=== PATIENT | female | born 1980 | race Caucasian/White ===

== ENCOUNTER 2018-10-11 10:41 | Outpatient (CLI) | payer MEDICAID | END 2018-10-11 11:32 | disposition home or self-care (01) | LOC: OBT 10:41 → L-D 10:41 → OBT 11:32 | DX: O36.8130 Decreased fetal movements, third trimester, not applicable or unspecified (principal); O09.512 Supervision of elderly primigravida, second trimester; Z3A.23 23 weeks gestation of pregnancy | CPT/HCPCS: 76815 ==

== ENCOUNTER 2018-12-12 10:28 | Outpatient (CLI) | payer MEDICAID ==
[2018-12-12 12:04] LABS: ADD MAN DIFF? NO
[2018-12-12 12:10] LABS: BASOPHILS % 0.4 % (0.0-2.0); EOSINOPHILS # 0.1 10^3/ul (0.0-0.5); EOSINOPHILS % 1.4 % (0.0-7.0); HEMATOCRIT 38.8 % (37.0-47.0); HEMOGLOBIN 13.1 g/dl (12.0-16.0); LYMPHOCYTES # 2.1 10^3/ul (0.8-2.9); LYMPHOCYTES % 26.1 % (15.0-51.0); MEAN CORPUSCULAR HEMOGLOBIN 28.9 pg (29.0-33.0); MEAN CORPUSCULAR HGB CONC 33.8 g/dl (32.0-37.0); MEAN CORPUSCULAR VOLUME 85.5 fl (82.0-101.0); MEAN PLATELET VOLUME 10.2 fl (7.4-10.4); MONOCYTE # 0.5 10^3/ul (0.3-0.9); MONOCYTES % 5.9 % (0.0-11.0); NEUTROPHIL # 5.2 10^3/ul (1.6-7.5); NEUTROPHILS % 65.7 % (39.0-77.0); PLATELET COUNT 235 10^3/UL (140-415); RED BLOOD COUNT 4.54 10^6/ul (4.20-5.40)
[2018-12-12 12:10] LABS: WHITE BLOOD COUNT 7.9 10^3/ul (4.8-10.8)
[2018-12-12 12:22] LABS: ADD UMIC NO; UR ASCORBIC ACID NEGATIVE (NEGATIVE); UR BILIRUBIN (Dip) NEGATIVE (NEGATIVE); UR BLOOD (Dip) NEGATIVE (NEGATIVE); UR CLARITY CLEAR (CLEAR); UR COLOR YELLOW (YELLOW); UR GLUCOSE (Dip) NEGATIVE (NEGATIVE); UR KETONES (Dip) NEGATIVE (NEGATIVE); UR LEUKOCYTE ESTERASE (Dip) NEGATIVE Leu/ul (NEGATIVE); UR NITRITE (Dip) NEGATIVE (NEGATIVE); UR TOTAL PROTEIN (Dip) NEGATIVE (NEGATIVE); UR UROBILINOGEN (Dip) NEGATIVE (NEGATIVE)
[2018-12-12 12:27] LABS: INR 0.84; PROTIME 11.6 Sec (11.9-14.9); PT RATIO 0.9
[2018-12-12 12:28] LABS: URIC ACID 3.2 mg/dl (3.1-7.9)
[2018-12-12 12:28] LABS: ALBUMIN/GLOBULIN RATIO 1.09; ANION GAP 11 (5-13); BILIRUBIN,TOTAL 0.3 mg/dl (0.2-1.3); Estimated GFR > 60 mL/min (>60); PARTIAL THROMBOPLASTIN TIME 26.5 Sec (23.0-35.0)
[2018-12-12 12:32] LABS: ALANINE AMINOTRANSFERASE 25 IU/L (13-69); ALBUMIN 3.4 g/dl (3.3-4.9); ALKALINE PHOSPHATASE 115 IU/L (42-121); ASPARTATE AMINO TRANSFERASE 24 IU/L (15-46); BILIRUBIN,INDIRECT 0.3 mg/dl (0-1.1); BLOOD UREA NITROGEN 8 mg/dl (7-20); CALCIUM 8.5 mg/dl (8.4-10.2); CARBON DIOXIDE 21 mmol/L (21-31); CHLORIDE 109 mmol/L (97-110); CREATININE 0.51 mg/dl (0.44-1.00); GLUCOSE 87 mg/dl (70-220); POTASSIUM 4.5 mmol/L (3.5-5.1); SODIUM 141 mmol/L (135-144); TOTAL PROTEIN 6.5 g/dl (6.1-8.1)
[2018-12-13 18:19] LABS: COLLECTION PERIOD 24 hrs
[2018-12-13 19:57] LABS: COLLECTION PERIOD 24 hrs; CREATININE CLEARANCE 224.7 mls/min (84.0-162.0); CREATININE,URINE RANDOM 35.11 mg/dl (20-320); SCRET 0.51 mg/dl (0.44-1.00); VOLUME 4700 ml/24hrs; VOLUME 4700 mls
[2018-12-13 19:58] LABS: 24HR URINE TOTAL PROTEIN > 600.0 mg/24hrs (42.0-225.0)
== END 2018-12-12 12:51 | disposition home or self-care (01) ==
LOC: OBT 10:28 → L-D 10:28 → OBT 12:51
DX: O36.8130 Decreased fetal movements, third trimester, not applicable or unspecified (principal); Z3A.32 32 weeks gestation of pregnancy
CPT/HCPCS: 76818; 80053; 81003; 82575; 84156; 84560; 85025; 85610; 85730

== ENCOUNTER 2018-12-19 23:55 | Inpatient (IN) | payer MEDICAID ==
[2018-12-20 03:55] LABS: ADD MAN DIFF? NO
[2018-12-20 04:00] LABS: WHITE BLOOD COUNT 7.3 10^3/ul (4.8-10.8)
[2018-12-20 04:00] LABS: BASOPHILS % 0.6 % (0.0-2.0); EOSINOPHILS # 0.2 10^3/ul (0.0-0.5); EOSINOPHILS % 2.5 % (0.0-7.0); HEMOGLOBIN 12.8 g/dl (12.0-16.0); LYMPHOCYTES # 2.1 10^3/ul (0.8-2.9); LYMPHOCYTES % 29.2 % (15.0-51.0); MEAN CORPUSCULAR HEMOGLOBIN 29.1 pg (29.0-33.0); MEAN CORPUSCULAR HGB CONC 34.6 g/dl (32.0-37.0); MEAN CORPUSCULAR VOLUME 84.1 fl (82.0-101.0); MEAN PLATELET VOLUME 10.6 fl (7.4-10.4); MONOCYTE # 0.5 10^3/ul (0.3-0.9); MONOCYTES % 7.4 % (0.0-11.0); NEUTROPHIL # 4.4 10^3/ul (1.6-7.5); NEUTROPHILS % 59.9 % (39.0-77.0); PLATELET COUNT 231 10^3/UL (140-415); RED CELL DISTRIBUTION WIDTH 12.9 % (11.5-14.5)
[2018-12-20] MEDS: LACTATED RINGER'S 1,000 ML IV ×3 (04:00→18:46)
[2018-12-20] MEDS: BETAMET NA PHOS/AC(6 MG/ML) 2 ML INJ SYG IM (04:02)
[2018-12-20 04:04] LABS: ADD UMIC NO; UR ASCORBIC ACID NEGATIVE (NEGATIVE); UR BILIRUBIN (Dip) NEGATIVE (NEGATIVE); UR BLOOD (Dip) NEGATIVE (NEGATIVE); UR CLARITY CLEAR (CLEAR); UR COLOR STRAW (YELLOW); UR GLUCOSE (Dip) NEGATIVE (NEGATIVE); UR KETONES (Dip) NEGATIVE (NEGATIVE); UR LEUKOCYTE ESTERASE (Dip) NEGATIVE Leu/ul (NEGATIVE); UR NITRITE (Dip) NEGATIVE (NEGATIVE); UR SPECIFIC GRAVITY (Dip) 1.002 (1.003-1.030); UR TOTAL PROTEIN (Dip) NEGATIVE (NEGATIVE); UR UROBILINOGEN (Dip) NEGATIVE (NEGATIVE)
[2018-12-20 04:16] LABS: INR 0.87; PROTIME 11.9 Sec (11.9-14.9); PT RATIO 0.9
[2018-12-20 04:17] LABS: PARTIAL THROMBOPLASTIN TIME 26.3 Sec (23.0-35.0)
[2018-12-20 04:21] LABS: ALANINE AMINOTRANSFERASE 27 IU/L (13-69); ALBUMIN 3.2 g/dl (3.3-4.9); ALBUMIN/GLOBULIN RATIO 1.06; ALKALINE PHOSPHATASE 137 IU/L (42-121); ANION GAP 9 (5-13); ASPARTATE AMINO TRANSFERASE 23 IU/L (15-46); BILIRUBIN,INDIRECT 0.2 mg/dl (0-1.1); BILIRUBIN,TOTAL 0.2 mg/dl (0.2-1.3); BLOOD UREA NITROGEN 13 mg/dl (7-20); CALCIUM 8.7 mg/dl (8.4-10.2); CARBON DIOXIDE 21 mmol/L (21-31); CHLORIDE 108 mmol/L (97-110); CREATININE 0.45 mg/dl (0.44-1.00); Estimated GFR > 60 mL/min (>60); GLUCOSE 114 mg/dl (70-220); POTASSIUM 3.7 mmol/L (3.5-5.1); SODIUM 138 mmol/L (135-144); TOTAL PROTEIN 6.2 g/dl (6.1-8.1); URIC ACID 3.6 mg/dl (3.1-7.9)
[2018-12-20] MEDS: INSULIN REGULAR, HUMAN 100 UNIT/1 ML 3ML VIAL SC ×2 (08:25→17:14)
[2018-12-20] MEDS: NPH, HUMAN INSULIN ISOPHANE 3ML VIAL SC ×2 (08:29→21:10)
[2018-12-20] MEDS: MAGNESIUM SULFATE 20 GM/500 ML 500 ML IV ×2 (08:33→19:22)
[2018-12-20] MEDS ORDERED: NACL 0.9% 3 ML SYG IV (09:00)
[2018-12-20] MEDS ORDERED: CA GLUCONATE (GM) 10% 10ML INJ IV (09:00)
[2018-12-20] MEDS: PRENATAL VITAMIN PO (09:41)
[2018-12-20] MEDS: MAGNESIUM SULFATE 4 GM/100 ML 100 ML IV (09:49)
[2018-12-20] MEDS: ACETAMINOPHEN 325 MG TAB PO (19:28)
[2018-12-20 19:36] LABS: MAGNESIUM 4.7 mg/dl (1.7-2.5)
[2018-12-21 01:11] LABS: COLLECTION PERIOD 24 hrs
[2018-12-21 01:29] LABS: MAGNESIUM 5.1 mg/dl (1.7-2.5)
[2018-12-21 02:10] LABS: VOLUME 3145 mls
[2018-12-21 02:11] LABS: 24HR URINE TOTAL PROTEIN 566.1 mg/24hrs (42.0-225.0)
[2018-12-21 02:21] LABS: COLLECTION PERIOD 24 hrs; SCRET 0.45 mg/dl (0.44-1.00); VOLUME 3145 ml/24hrs
[2018-12-21 02:50] LABS: CREATININE CLEARANCE 221.8 mls/min (84.0-162.0)
[2018-12-21] MEDS: BETAMET NA PHOS/AC(6 MG/ML) 2 ML INJ SYG IM (03:56)
[2018-12-21] MEDS: MAGNESIUM SULFATE 20 GM/500 ML 500 ML IV (05:56)
[2018-12-21] MEDS: LACTATED RINGER'S 1,000 ML IV ×2 (07:21→18:42)
[2018-12-21] MEDS: NPH, HUMAN INSULIN ISOPHANE 3ML VIAL SC ×2 (08:08→21:04)
[2018-12-21] MEDS: INSULIN REGULAR, HUMAN 100 UNIT/1 ML 3ML VIAL SC ×2 (08:09→17:44)
[2018-12-21] MEDS: PRENATAL VITAMIN PO (09:14)
[2018-12-21] MEDS: DOCUSATE SODIUM 100 MG CAP PO (23:25)
[2018-12-22] MEDS: INSULIN REGULAR, HUMAN 100 UNIT/1 ML 3ML VIAL SC ×2 (08:55→18:06)
[2018-12-22] MEDS: LACTATED RINGER'S 1,000 ML IV ×2 (08:56→21:55)
[2018-12-22] MEDS: NPH, HUMAN INSULIN ISOPHANE 3ML VIAL SC ×2 (08:56→21:00)
[2018-12-22] MEDS: PRENATAL VITAMIN PO (09:19)
[2018-12-23] MEDS: LACTATED RINGER'S 1,000 ML IV ×3 (04:29→23:58)
[2018-12-23] MEDS: INSULIN REGULAR, HUMAN 100 UNIT/1 ML 3ML VIAL SC ×2 (08:17→18:16)
[2018-12-23] MEDS: NPH, HUMAN INSULIN ISOPHANE 3ML VIAL SC ×2 (08:20→21:08)
[2018-12-23] MEDS: PRENATAL VITAMIN PO (08:21)
[2018-12-23 18:32] LABS: ADD MAN DIFF? NO
[2018-12-23 18:34] LABS: BASOPHILS % 0.5 % (0.0-2.0); EOSINOPHILS # 0.2 10^3/ul (0.0-0.5); EOSINOPHILS % 1.9 % (0.0-7.0); HEMATOCRIT 40.4 % (37.0-47.0); HEMOGLOBIN 13.8 g/dl (12.0-16.0); LYMPHOCYTES # 2.1 10^3/ul (0.8-2.9); LYMPHOCYTES % 26.3 % (15.0-51.0); MEAN CORPUSCULAR HEMOGLOBIN 29.1 pg (29.0-33.0); MEAN CORPUSCULAR HGB CONC 34.2 g/dl (32.0-37.0); MEAN CORPUSCULAR VOLUME 85.1 fl (82.0-101.0); MEAN PLATELET VOLUME 10.8 fl (7.4-10.4); MONOCYTE # 0.6 10^3/ul (0.3-0.9); MONOCYTES % 7.7 % (0.0-11.0); NEUTROPHIL # 4.9 10^3/ul (1.6-7.5); NEUTROPHILS % 63.1 % (39.0-77.0); PLATELET COUNT 237 10^3/UL (140-415); RED BLOOD COUNT 4.75 10^6/ul (4.20-5.40); RED CELL DISTRIBUTION WIDTH 12.9 % (11.5-14.5)
[2018-12-23 18:34] LABS: WHITE BLOOD COUNT 7.8 10^3/ul (4.8-10.8)
[2018-12-23 18:53] LABS: URIC ACID 3.2 mg/dl (3.1-7.9)
[2018-12-23 18:54] LABS: ALANINE AMINOTRANSFERASE 31 IU/L (13-69); ALBUMIN 3.3 g/dl (3.3-4.9); ALKALINE PHOSPHATASE 140 IU/L (42-121); ANION GAP 11 (5-13); ASPARTATE AMINO TRANSFERASE 32 IU/L (15-46); BILIRUBIN,INDIRECT 0.3 mg/dl (0-1.1); BILIRUBIN,TOTAL 0.3 mg/dl (0.2-1.3); BLOOD UREA NITROGEN 13 mg/dl (7-20); CALCIUM 8.6 mg/dl (8.4-10.2); CARBON DIOXIDE 21 mmol/L (21-31); CHLORIDE 107 mmol/L (97-110); CREATININE 0.46 mg/dl (0.44-1.00); Estimated GFR > 60 mL/min (>60); GLUCOSE 69 mg/dl (70-220); INR 0.85; PROTIME 11.7 Sec (11.9-14.9); PT RATIO 0.9; SODIUM 139 mmol/L (135-144); TOTAL PROTEIN 6.6 g/dl (6.1-8.1)
[2018-12-23 18:55] LABS: PARTIAL THROMBOPLASTIN TIME 24.7 Sec (23.0-35.0)
[2018-12-23] MEDS ORDERED: LABETALOL 100 MG TAB PO ×2 (21:00)
[2018-12-23] MEDS: LABETALOL 100 MG TAB PO ×2 (21:09→22:33)
[2018-12-24] MEDS: LABETALOL 200 MG TAB PO ×2 (08:43→20:51)
[2018-12-24] MEDS: PRENATAL VITAMIN PO (08:43)
[2018-12-24] MEDS: INSULIN REGULAR, HUMAN 100 UNIT/1 ML 3ML VIAL SC ×2 (08:46→18:20)
[2018-12-24] MEDS: NPH, HUMAN INSULIN ISOPHANE 3ML VIAL SC ×2 (08:48→20:54)
[2018-12-24] MEDS: LACTATED RINGER'S 1,000 ML IV (12:55)
[2018-12-25] MEDS: LABETALOL 100 MG TAB PO (01:39)
[2018-12-25] MEDS: LACTATED RINGER'S 1,000 ML IV ×4 (01:40→18:37)
[2018-12-25] MEDS: LABETALOL 200 MG TAB PO (05:48)
[2018-12-25] MEDS: PRENATAL VITAMIN PO (08:10)
[2018-12-25] MEDS: INSULIN REGULAR, HUMAN 100 UNIT/1 ML 3ML VIAL SC (08:14)
[2018-12-25] MEDS: NPH, HUMAN INSULIN ISOPHANE 3ML VIAL SC (08:16)
[2018-12-25] MEDS ORDERED: CARBOPROST 250 MCG INJ IM ×2 (12:00→19:00)
[2018-12-25] MEDS ORDERED: METHYLERGONOVINE 0.2 MG INJ IM ×2 (12:00→19:00)
[2018-12-25] MEDS ORDERED: OXYTOCIN 30 UNITS/LR 500 ML IV ×2 (12:00→19:00)
[2018-12-25] MEDS ORDERED: CEFAZOLIN 2 GM/50 ML (PMX) 50 ML IVPB (12:00)
[2018-12-25] MEDS ORDERED: MISOPROSTOL 200 MCG TAB PR ×2 (12:00→19:00)
[2018-12-25] MEDS: MAGNESIUM SULFATE 4 GM/100 ML 100 ML IVPB (12:04)
[2018-12-25 12:08] LABS: ADD MAN DIFF? NO
[2018-12-25 12:11] LABS: BASOPHILS % 0.4 % (0.0-2.0); EOSINOPHILS # 0.1 10^3/ul (0.0-0.5); EOSINOPHILS % 1.6 % (0.0-7.0); HEMOGLOBIN 12.9 g/dl (12.0-16.0); LYMPHOCYTES # 1.7 10^3/ul (0.8-2.9); LYMPHOCYTES % 20.6 % (15.0-51.0); MEAN CORPUSCULAR HEMOGLOBIN 29.4 pg (29.0-33.0); MEAN CORPUSCULAR HGB CONC 34.9 g/dl (32.0-37.0); MEAN CORPUSCULAR VOLUME 84.3 fl (82.0-101.0); MEAN PLATELET VOLUME 10.2 fl (7.4-10.4); MONOCYTE # 0.6 10^3/ul (0.3-0.9); MONOCYTES % 7.4 % (0.0-11.0); NEUTROPHIL # 5.6 10^3/ul (1.6-7.5); NEUTROPHILS % 69.6 % (39.0-77.0); PLATELET COUNT 240 10^3/UL (140-415); RED BLOOD COUNT 4.39 10^6/ul (4.20-5.40); RED CELL DISTRIBUTION WIDTH 12.9 % (11.5-14.5)
[2018-12-25] MEDS: MAGNESIUM SULFATE 20 GM/500 ML 500 ML IV (12:22)
[2018-12-25 12:29] LABS: INR 0.88; PT RATIO 0.9
[2018-12-25 12:30] LABS: PARTIAL THROMBOPLASTIN TIME 25.8 Sec (23.0-35.0)
[2018-12-25] MEDS ORDERED: FENTAnyl 50 MCG/ML VIAL (13:31)
[2018-12-25] MEDS ORDERED: morphine SULFATE/PF (10 MG/10 ML) INJ (13:31)
[2018-12-25] MEDS ORDERED: PHENYLephrine 10 MG INJ (13:33)
[2018-12-25] MEDS ORDERED: DEXAMETHASONE 4 MG/ML 1 ML INJ (15:01)
[2018-12-25] MEDS ORDERED: ONDANSETRON 4 MG INJ (15:02)
[2018-12-25] MEDS ORDERED: DIPHENHYDRAMINE 50 MG INJ IV (16:00)
[2018-12-25] MEDS ORDERED: GLUCAGON 1 MG INJ IM (16:00)
[2018-12-25] MEDS ORDERED: HYDROmorphONE 0.5 MG/0.5 ML SYG IV ×2 (16:00)
[2018-12-25] MEDS ORDERED: GLUCOSE GEL 15 GRAM TUBE PO ×2 (16:00)
[2018-12-25] MEDS ORDERED: GLUCOSE GEL 15 GRAM TUBE BUCCAL (16:00)
[2018-12-25] MEDS ORDERED: DEXTROSE 50% 50 ML SYRINGE IV ×2 (16:00)
[2018-12-25] MEDS ORDERED: NALOXONE (0.4 MG/ML) INJ IV (16:00)
[2018-12-25] MEDS ORDERED: ZOLPIDEM 5 MG TAB PO (16:00)
[2018-12-25] MEDS: ONDANSETRON 4 MG INJ IV (16:13)
[2018-12-25] MEDS ORDERED: MAGNESIUM SULFATE 2 GM/50 ML 50 ML IVPB (16:30)
[2018-12-25 16:57] LABS: RAPID PLASMA REAGIN NONREACTIVE (NR)
[2018-12-25] MEDS ORDERED: LABETALOL HCL 20MG INJ IV (17:00)
[2018-12-25] MEDS: hydrALAzine 20 MG INJ IV (17:34)
[2018-12-25] MEDS: INSULIN ASPART [NOVOLOG] 3 ML PEN SC ×2 (18:30→21:00)
[2018-12-25] MEDS: OXYTOCIN 30 UNITS/LR 500 ML IV (18:39)
[2018-12-25] MEDS ORDERED: NACL 0.9% 3 ML SYG IV ×2 (19:00→21:30)
[2018-12-25] MEDS ORDERED: NA PHOSPHATE/BIPHOS 133 ML ENEMA PR (19:00)
[2018-12-25 19:23] LABS: MAGNESIUM 4.1 mg/dl (1.7-2.5)
[2018-12-25] MEDS ORDERED: CA GLUCONATE (GM) 10% 10ML INJ IV (21:30)
[2018-12-25] MEDS ORDERED: MAGNESIUM SULFATE 4 GM/100 ML 100 ML IV (21:30)
[2018-12-25 22:00] LABS: ALBUMIN 3.3 g/dl (3.3-4.9); ANION GAP 11 (5-13); BLOOD UREA NITROGEN 10 mg/dl (7-20); CALCIUM 7.8 mg/dl (8.4-10.2); CARBON DIOXIDE 19 mmol/L (21-31); CHLORIDE 105 mmol/L (97-110); CREATININE 0.46 mg/dl (0.44-1.00); GLUCOSE 134 mg/dl (70-220); PHOSPHORUS 4.3 mg/dl (2.5-4.9); POTASSIUM 4.6 mmol/L (3.5-5.1); SODIUM 135 mmol/L (135-144)
[2018-12-25] MEDS: IBUPROFEN 800 MG TAB PO (22:00)
[2018-12-26] MEDS: MAGNESIUM SULFATE 20 GM/500 ML 500 ML IV ×2 (00:40→11:54)
[2018-12-26] MEDS: INSULIN ASPART [NOVOLOG] 3 ML PEN SC ×6 (01:00→21:00)
[2018-12-26 01:34] LABS: MAGNESIUM 4.6 mg/dl (1.7-2.5)
[2018-12-26] MEDS: ACCU-CHEK XX ×2 (02:00→08:00)
[2018-12-26] MEDS: LACTATED RINGER'S 1,000 ML IV ×2 (05:10→07:50)
[2018-12-26] MEDS: IBUPROFEN 800 MG TAB PO ×3 (06:00→21:50)
[2018-12-26 06:19] LABS: ADD MAN DIFF? NO
[2018-12-26 06:31] LABS: BASOPHILS % 0.2 % (0.0-2.0); EOSINOPHILS % 0.1 % (0.0-7.0); HEMATOCRIT 35.5 % (37.0-47.0); HEMOGLOBIN 12.3 g/dl (12.0-16.0); LYMPHOCYTES # 1.9 10^3/ul (0.8-2.9); LYMPHOCYTES % 14.4 % (15.0-51.0); MEAN CORPUSCULAR HEMOGLOBIN 29.1 pg (29.0-33.0); MEAN CORPUSCULAR HGB CONC 34.6 g/dl (32.0-37.0); MEAN CORPUSCULAR VOLUME 84.1 fl (82.0-101.0); MEAN PLATELET VOLUME 10.4 fl (7.4-10.4); MONOCYTE # 0.9 10^3/ul (0.3-0.9); MONOCYTES % 6.6 % (0.0-11.0); NEUTROPHIL # 10.2 10^3/ul (1.6-7.5); NEUTROPHILS % 78.3 % (39.0-77.0); PLATELET COUNT 239 10^3/UL (140-415); RED BLOOD COUNT 4.22 10^6/ul (4.20-5.40); RED CELL DISTRIBUTION WIDTH 13.2 % (11.5-14.5)
[2018-12-26 07:00] LABS: PHOSPHORUS 4.8 mg/dl (2.5-4.9)
[2018-12-26 07:01] LABS: MAGNESIUM 5.5 mg/dl (1.7-2.5)
[2018-12-26] MEDS: PRENATAL VITAMIN PO (10:08)
[2018-12-26] MEDS: LANOLIN HPA 1 PKT TOP (10:10)
[2018-12-26] MEDS ORDERED: INSULIN ASPART [NOVOLOG] 3 ML PEN SC (12:00)
[2018-12-26 12:55] LABS: MAGNESIUM 5.4 mg/dl (1.7-2.5)
[2018-12-26] MEDS: KETOROLAC 30 MG INJ IV (14:34)
[2018-12-27] MEDS: HYDROCODONE/APAP (5/325) TAB PO ×2 (04:29→08:23)
[2018-12-27] MEDS: IBUPROFEN 800 MG TAB PO ×3 (05:43→22:11)
[2018-12-27] MEDS: INSULIN ASPART [NOVOLOG] 3 ML PEN SC ×4 (08:05→21:00)
[2018-12-27] MEDS: PRENATAL VITAMIN PO (08:22)
[2018-12-27] MEDS: DOCUSATE SODIUM 100 MG CAP PO ×2 (08:22→22:11)
[2018-12-27 08:36] LABS: ADD MAN DIFF? NO
[2018-12-27 08:39] LABS: BASOPHILS % 0.2 % (0.0-2.0); EOSINOPHILS # 0.1 10^3/ul (0.0-0.5); EOSINOPHILS % 1.7 % (0.0-7.0); HEMATOCRIT 34.4 % (37.0-47.0); HEMOGLOBIN 11.6 g/dl (12.0-16.0); LYMPHOCYTES # 2.1 10^3/ul (0.8-2.9); LYMPHOCYTES % 26.2 % (15.0-51.0); MEAN CORPUSCULAR HEMOGLOBIN 29.1 pg (29.0-33.0); MEAN CORPUSCULAR HGB CONC 33.7 g/dl (32.0-37.0); MEAN CORPUSCULAR VOLUME 86.4 fl (82.0-101.0); MEAN PLATELET VOLUME 10.2 fl (7.4-10.4); MONOCYTE # 0.6 10^3/ul (0.3-0.9); MONOCYTES % 7.8 % (0.0-11.0); NEUTROPHIL # 5.1 10^3/ul (1.6-7.5); NEUTROPHILS % 63.7 % (39.0-77.0); PLATELET COUNT 211 10^3/UL (140-415); RED BLOOD COUNT 3.98 10^6/ul (4.20-5.40); RED CELL DISTRIBUTION WIDTH 13.2 % (11.5-14.5)
[2018-12-27 08:39] LABS: WHITE BLOOD COUNT 8.1 10^3/ul (4.8-10.8)
[2018-12-27 09:02] LABS: ANION GAP 7 (5-13); BLOOD UREA NITROGEN 12 mg/dl (7-20); CALCIUM 7.5 mg/dl (8.4-10.2); CARBON DIOXIDE 23 mmol/L (21-31); CHLORIDE 109 mmol/L (97-110); CREATININE 0.49 mg/dl (0.44-1.00); Estimated GFR > 60 mL/min (>60); GLUCOSE 75 mg/dl (70-220); PHOSPHORUS 4.1 mg/dl (2.5-4.9); POTASSIUM 4.2 mmol/L (3.5-5.1); SODIUM 139 mmol/L (135-144)
[2018-12-27 09:21] LABS: ADD UMIC YES; UR ASCORBIC ACID NEGATIVE (NEGATIVE); UR BILIRUBIN (Dip) NEGATIVE (NEGATIVE); UR BLOOD (Dip) 3+ mg/dL (NEGATIVE); UR CLARITY CLEAR (CLEAR); UR COLOR STRAW (YELLOW); UR GLUCOSE (Dip) NEGATIVE (NEGATIVE); UR KETONES (Dip) NEGATIVE (NEGATIVE); UR LEUKOCYTE ESTERASE (Dip) NEGATIVE Leu/ul (NEGATIVE); UR NITRITE (Dip) NEGATIVE (NEGATIVE); UR RBC 5 /HPF (0-5); UR SPECIFIC GRAVITY (Dip) 1.003 (1.003-1.030); UR TOTAL PROTEIN (Dip) NEGATIVE (NEGATIVE); UR UROBILINOGEN (Dip) NEGATIVE (NEGATIVE); UR WBC 0 /HPF (0-5)
[2018-12-28] MEDS: ACCU-CHEK XX (02:00)
[2018-12-28] MEDS: IBUPROFEN 800 MG TAB PO ×3 (06:52→22:24)
[2018-12-28] MEDS: INSULIN ASPART [NOVOLOG] 3 ML PEN SC ×4 (08:05→21:00)
[2018-12-28 08:23] LABS: ADD MAN DIFF? NO
[2018-12-28 08:34] LABS: BASOPHILS % 0.3 % (0.0-2.0); EOSINOPHILS # 0.2 10^3/ul (0.0-0.5); EOSINOPHILS % 2.7 % (0.0-7.0); HEMOGLOBIN 12.2 g/dl (12.0-16.0); LYMPHOCYTES # 1.8 10^3/ul (0.8-2.9); LYMPHOCYTES % 27.3 % (15.0-51.0); MEAN CORPUSCULAR HEMOGLOBIN 28.8 pg (29.0-33.0); MEAN CORPUSCULAR VOLUME 87.5 fl (82.0-101.0); MEAN PLATELET VOLUME 10.4 fl (7.4-10.4); MONOCYTE # 0.5 10^3/ul (0.3-0.9); MONOCYTES % 7.2 % (0.0-11.0); NEUTROPHIL # 4.2 10^3/ul (1.6-7.5); NEUTROPHILS % 62.3 % (39.0-77.0); PLATELET COUNT 241 10^3/UL (140-415); RED BLOOD COUNT 4.23 10^6/ul (4.20-5.40); RED CELL DISTRIBUTION WIDTH 13.5 % (11.5-14.5)
[2018-12-28 08:34] LABS: WHITE BLOOD COUNT 6.7 10^3/ul (4.8-10.8)
[2018-12-28 08:57] LABS: ANION GAP 9 (5-13); BLOOD UREA NITROGEN 10 mg/dl (7-20); CALCIUM 8.4 mg/dl (8.4-10.2); CARBON DIOXIDE 23 mmol/L (21-31); CHLORIDE 109 mmol/L (97-110); CREATININE 0.49 mg/dl (0.44-1.00); Estimated GFR > 60 mL/min (>60); GLUCOSE 84 mg/dl (70-220); MAGNESIUM 1.9 mg/dl (1.7-2.5); PHOSPHORUS 3.9 mg/dl (2.5-4.9); SODIUM 141 mmol/L (135-144)
[2018-12-28] MEDS: MEASLES,MUMPS,RUBELLA VACCINE INJ SC* (09:00)
[2018-12-28] MEDS: DOCUSATE SODIUM 100 MG CAP PO (11:06)
[2018-12-28] MEDS: PRENATAL VITAMIN PO (11:06)
[2018-12-28] MEDS: DIPHTH/TET/ACEL PERTUSS (ADULT) 0.5 ML VIAL IM* (16:00)
[2018-12-28] MEDS: hydrALAzine 20 MG INJ IM (20:19)
[2018-12-29] MEDS: ACCU-CHEK XX ×2 (02:08→21:30)
[2018-12-29] MEDS: IBUPROFEN 800 MG TAB PO ×3 (06:19→22:41)
[2018-12-29] MEDS: INSULIN ASPART [NOVOLOG] 3 ML PEN SC ×3 (08:05→18:05)
[2018-12-29 08:30] LABS: ADD MAN DIFF? NO
[2018-12-29 08:41] LABS: WHITE BLOOD COUNT 7.8 10^3/ul (4.8-10.8)
[2018-12-29 08:41] LABS: BASOPHILS % 0.4 % (0.0-2.0); EOSINOPHILS # 0.3 10^3/ul (0.0-0.5); EOSINOPHILS % 3.5 % (0.0-7.0); HEMATOCRIT 37.4 % (37.0-47.0); HEMOGLOBIN 12.6 g/dl (12.0-16.0); LYMPHOCYTES # 1.8 10^3/ul (0.8-2.9); LYMPHOCYTES % 23.2 % (15.0-51.0); MEAN CORPUSCULAR HEMOGLOBIN 29.2 pg (29.0-33.0); MEAN CORPUSCULAR HGB CONC 33.7 g/dl (32.0-37.0); MEAN CORPUSCULAR VOLUME 86.6 fl (82.0-101.0); MEAN PLATELET VOLUME 10.3 fl (7.4-10.4); MONOCYTE # 0.5 10^3/ul (0.3-0.9); MONOCYTES % 6.7 % (0.0-11.0); NEUTROPHIL # 5.1 10^3/ul (1.6-7.5); NEUTROPHILS % 65.8 % (39.0-77.0); PLATELET COUNT 242 10^3/UL (140-415); RED BLOOD COUNT 4.32 10^6/ul (4.20-5.40)
[2018-12-29 09:07] LABS: ANION GAP 7 (5-13); BLOOD UREA NITROGEN 11 mg/dl (7-20); CALCIUM 9.1 mg/dl (8.4-10.2); CARBON DIOXIDE 23 mmol/L (21-31); CHLORIDE 112 mmol/L (97-110); CREATININE 0.44 mg/dl (0.44-1.00); Estimated GFR > 60 mL/min (>60); GLUCOSE 97 mg/dl (70-220); MAGNESIUM 1.6 mg/dl (1.7-2.5); PHOSPHORUS 3.8 mg/dl (2.5-4.9); POTASSIUM 3.8 mmol/L (3.5-5.1); SODIUM 142 mmol/L (135-144)
[2018-12-29] MEDS: PRENATAL VITAMIN PO (09:43)
[2018-12-29] MEDS: NIFEdipine (XL) 30 MG TAB PO (09:44)
[2018-12-30] MEDS: IBUPROFEN 800 MG TAB PO ×3 (06:00→22:43)
[2018-12-30 06:46] LABS: ADD MAN DIFF? NO
[2018-12-30 06:52] LABS: BASOPHILS % 0.4 % (0.0-2.0); EOSINOPHILS # 0.3 10^3/ul (0.0-0.5); EOSINOPHILS % 4.8 % (0.0-7.0); HEMOGLOBIN 13.3 g/dl (12.0-16.0); LYMPHOCYTES # 2.1 10^3/ul (0.8-2.9); LYMPHOCYTES % 30.5 % (15.0-51.0); MEAN CORPUSCULAR HEMOGLOBIN 29.6 pg (29.0-33.0); MEAN CORPUSCULAR HGB CONC 34.1 g/dl (32.0-37.0); MEAN CORPUSCULAR VOLUME 86.7 fl (82.0-101.0); MEAN PLATELET VOLUME 9.8 fl (7.4-10.4); MONOCYTE # 0.4 10^3/ul (0.3-0.9); MONOCYTES % 5.9 % (0.0-11.0); NEUTROPHILS % 58.1 % (39.0-77.0); PLATELET COUNT 268 10^3/UL (140-415); RED CELL DISTRIBUTION WIDTH 12.8 % (11.5-14.5)
[2018-12-30 06:52] LABS: WHITE BLOOD COUNT 6.9 10^3/ul (4.8-10.8)
[2018-12-30 07:14] LABS: ANION GAP 8 (5-13); BLOOD UREA NITROGEN 13 mg/dl (7-20); CALCIUM 8.7 mg/dl (8.4-10.2); CARBON DIOXIDE 23 mmol/L (21-31); CHLORIDE 110 mmol/L (97-110); CREATININE 0.41 mg/dl (0.44-1.00); Estimated GFR > 60 mL/min (>60); GLUCOSE 92 mg/dl (70-220); MAGNESIUM 1.8 mg/dl (1.7-2.5); POTASSIUM 3.9 mmol/L (3.5-5.1); SODIUM 141 mmol/L (135-144)
[2018-12-30] MEDS: INSULIN ASPART [NOVOLOG] 3 ML PEN SC ×5 (08:05→21:00)
[2018-12-30] MEDS: NIFEdipine (XL) 60 MG TAB PO (08:54)
[2018-12-30] MEDS: PRENATAL VITAMIN PO (08:55)
[2018-12-30] MEDS: ACCU-CHEK XX (22:50)
[2018-12-31] MEDS: ACCU-CHEK XX ×2 (00:56→02:00)
[2018-12-31] MEDS: IBUPROFEN 800 MG TAB PO ×2 (05:57→14:08)
[2018-12-31] MEDS: INSULIN ASPART [NOVOLOG] 3 ML PEN SC ×2 (08:05→11:50)
[2018-12-31] MEDS: NIFEdipine (XL) 60 MG TAB PO (09:30)
[2018-12-31] MEDS: PRENATAL VITAMIN PO (09:30)
== END 2018-12-31 16:22 | disposition home or self-care (01) | DRG 786 ==
LOC: OBT 23:55 → PP1 12-21 15:30 → L-D 23:55 → PP1 12-25 18:12
PROVIDERS: Obstetrics & Gynecology
PROC: 10D00Z1 Extraction of Products of Conception, Low, Open Approach (ICD-10-PCS; principal; 2018-12-25 13:30)
DX: O60.13X0 Preterm labor second trimester with preterm delivery third trimester, not applicable or unspecified (principal); O24.12 Pre-existing type 2 diabetes mellitus, in childbirth; E11.9 Type 2 diabetes mellitus without complications; O14.14 Severe pre-eclampsia complicating childbirth; O16.5 Unspecified maternal hypertension, complicating the puerperium; Z3A.33 33 weeks gestation of pregnancy; Z37.0 Single live birth; Z79.4 Long term (current) use of insulin
CPT/HCPCS: 76815; 76817; 76818; 76820; 80048; 80053; 80069; 81001; 81003; 82575; 82962; 83735; 84100; 84156; 84560; 85025; 85610; 85730; 86592; 86850; 86900; 86901; 88307; 90715; 99464